=== PATIENT | female | born 1975 | race Caucasian/White ===

== ENCOUNTER 2016-11-14 12:22 | Emergency (ER) | payer OTHER ==
[~2016-11-14] VITALS: Ht 149.9 cm; Wt 93.0 kg
[~2016-11-14 12:22] MED LIST: BUPR150XL PO; CLON.5 PO; CYMB60CA PO; PROM25TA5 PO; SERO25TA PO; TOPA100T11 PO
[2016-11-14 12:25] VITALS: BP 136/84; PULSE 99; RESP 15; TEMP 98.4; O2SAT 99
[2016-11-14] MEDS ORDERED: SUMA6P SQ (12:51)
[2016-11-14] MEDS ORDERED: VICT18IN SQ (12:52)
--- NOTE | 2016-11-14 13:29 | RADRPT ---
EXAM DATE/TIME: 11/14/2016 12:58 [facility] COMPARISON: No previous studies available for comparison. INDICATIONS : Left ankle pain after fall. MEDICAL HISTORY : None. SURGICAL HISTORY : None. ENCOUNTER: Initial ACUITY: 2 days PAIN SCORE: 5/10 LOCATION: Left Ankle FINDINGS: Three view exam was performed of the left ankle. The bony structures are in normal alignment. No ev idence of fracture, dislocation, or soft tissue swelling. The ankle mortise is intact. No radiopaqu e foreign bodies are seen. Bony mineralization is normal. CONCLUSION: Unremarkable examination of the left ankle. Judd Thompson MD on November 14, 2016 at 13:28 Board Certified Radiologist. This report was verified electronically.
--- NOTE | 2016-11-14 13:30 | RADRPT ---
EXAM DATE/TIME: 11/14/2016 13:11 [facility] COMPARISON: No previous studies available for comparison. INDICATIONS : Left wrist pain after fall. MEDICAL HISTORY : None. SURGICAL HISTORY : None. ENCOUNTER: Initial ACUITY: 2 days PAIN SCORE: 8/10 LOCATION: Left lateral Wrist FINDINGS: Three view examination of the left wrist demonstrates no soft tissue swelling, dislocation, or fractu re. The carpal bones are in normal alignment. The joint spaces are maintained. Bony mineralization is normal. CONCLUSION: Negative trauma study. Judd Thompson MD on November 14, 2016 at 13:28 Board Certified Radiologist. This report was verified electronically.
--- NOTE | 2016-11-14 13:31 | RADRPT ---
EXAM DATE/TIME: 11/14/2016 13:14 [facility] COMPARISON: No previous studies available for comparison. INDICATIONS : Left hand pain after fall. MEDICAL HISTORY : None. SURGICAL HISTORY : None. ENCOUNTER: Initial ACUITY: 2 days PAIN SCORE: 9/10 LOCATION: Left lateral Hand FINDINGS: Three view examination of the left hand demonstrates no soft tissue swelling, dislocation, or fractur e. The carpal bones appear intact. The interphalangeal and metacarpophalangeal joints are intact. Bony mineralization is normal. CONCLUSION: Negative trauma study. Judd Thompson MD on November 14, 2016 at 13:29 Board Certified Radiologist. This report was verified electronically.
--- NOTE | 2016-11-14 13:40 | PD ---
HPI Chief Complaint: Fall Time Seen by Provider: 12:45 Travel History International Travel<30 days: No Contact w/Intl Traveler<30days: No Traveled to known affect area: No History of Present Illness HPI 41-year-old female presents to the emergency department for evaluation of left wrist, hand, and ankle pain status post fall 2 days ago. Patient reports she fell from a standing position onto an outstretched hand and twisted her left ankle. She reports the pain has been constant since the fall. She denies head injury or loss of consciousness. She reports that the pain is worse with range of motion and weightbearing. Slightly relieved with rest. Pain severity 5/10. She denies numbness/tingling/weakness in extremities. PFSH Past Medical History Depression: Yes Cardiovascular Problems: Yes (htn on meds prn) Diabetes: Yes Patient Takes Glucophage: No Diminished Hearing: No Migraines: Yes Ulcer: Yes Influenza Vaccination: No ?: Not Past Surgical History Appendectomy: Yes Section: Yes Cholecystectomy: Yes Hysterectomy: Yes Social History Alcohol Use: No Tobacco Use: No Substance Use: No Allergies-Medications (Allergen,Severity, Reaction): Coded Allergies: ondansetron (Unverified Allergy, Severe, Facial swelling, 11/14/16) aspirin (Unverified Adverse Reaction, Intermediate, GI upset, 11/14/16) Reported Meds & Prescriptions Reported Meds & Active Scripts Active Reported Victoza Inj (Liraglutide Inj) 18 Mg/3 Ml Pen 1.8 Mg SQ DAILY Imitrex Inj (Sumatriptan Succinate) 6 Mg/0.5 Ml Inj 6 Mg SQ ONCE PRN May repeat dose in 1 hour if needed. Topamax (Topiramate) 100 Mg Tab 100 Mg PO BID Cymbalta DR (Duloxetine HCl) 60 Mg Capdr 90 Mg PO DAILY Review of Systems Except as stated in HPI: all other systems reviewed are Neg General / Constitutional: No: Fever Eyes: No: Visual changes HENT: No: Headaches Cardiovascular: No: Chest Pain or Discomfort Respiratory: No: Shortness of Breath Gastrointestinal: No: Abdominal Pain Genitourinary: No: Dysuria Musculoskeletal: No: Pain Physical Exam Narrative GENERAL: Well-nourished, well-developed patient. In no acute distress. SKIN: Focused skin assessment warm/dry. HEAD: Normocephalic. EYES: No scleral icterus. No injection or drainage. NECK: Supple, trachea midline. No JVD or lymphadenopathy. CARDIOVASCULAR: Regular rate and rhythm without murmurs, gallops, or rubs. RESPIRATORY: Breath sounds equal bilaterally. No accessory muscle use. GASTROINTESTINAL: Abdomen soft, non-tender, nondistended. MUSCULOSKELETAL: No cyanosis. Left upper extremity: TTP to the lateral and medial aspect of the wrist. TTP and swelling over the fourth and fifth metacarpal. No deformity noted. The joint is stable. Patient has pain with flexion and extension of the wrist. 2+ distal pulses. Normal sensation. Brisk cap refill. Left lower extremity: TTP to the lateral malleolus. No deformity noted. The joint is stable. 2+ distal pulses. Normal sensation. Brisk cap refill. BACK: Nontender without obvious deformity. No CVA tenderness. Data Data Last Documented VS Vital Signs Date Time Temp Pulse Resp B/P Pulse Ox O2 Delivery O2 Flow Rate FiO2 11/14/16 12:25 98.4 99 15 136/84 99 Orders Ankle, Complete ([id number]) (11/14/16 ) Wrist, Complete ([id number]) (11/14/16 ) Hand, Complete ([id number]) (11/14/16 ) Shay Bandage (11/14/16 13:55) Splint Or Brace Apply/Monitor (11/14/16 13:55) MDM Medical Decision Making Medical Screen Exam Complete: Yes Emergency Medical Condition: Yes Differential Diagnosis Wrist fracture versus wrist sprain versus metacarpal fracture versus ankle fracture versus ankle sprain Narrative Course 41-year-old female with chief complaint of left wrist, left hand, left ankle pain status post fall 2 days ago. Patient fell from standing position. She denies head injury or loss of consciousness. Her physical exam is reassuring. She has mild amount of swelling and notable tenderness to the left wrist, left hand and left ankle. The joints are without deformity. The extremity is neurovascular intact. X-rays pending X-ray of the left wrist and hand negative for fracture X-ray of the left ankle negative for fracture Shay wrap applied to left ankle for support. Left wrist placed in a wrist splint. Patient will be treated for left ankle and left wrist sprain. She is given a shot of Toradol in the ED. Instructed to take [id number] NSAIDs as needed for pain. Follow-up with her primary doctor. Patient verbalizes understanding and agrees to plan Diagnosis Primary Impression: Left wrist sprain Qualified Code: S63.502A - Sprain of left wrist, initial encounter Additional Impression: Ankle sprain Qualified Code: S93.402A - Sprain of left ankle, unspecified ligament, initial encounter Referrals: Primary Care Physician Additional Instructions: Take [id number] Motrin [id number] milligrams by mouth every 6-8 hours as needed for pain. We're the Shay wrap and wrist splint as needed for comfort. Ice and elevate the extremities. Follow up with her primary care doctor for recheck. Return to emergency department if he developed new or worsening symptoms. Disposition: 01 DISCHARGE HOME Condition: Stable Natalia Andrews Nov 14, 2016 13:40
[2016-11-14] MEDS ORDERED: KETOROLAC TROMETHAMINE 60 MG/2 ML (IM) VIAL IM ONE (14:00)
[2016-11-14 14:17] VITALS: BP 127/74
== END 2016-11-14 14:23 | disposition home or self-care (01) ==
LOC: PHEFT 12:22
DX: S63.502A Unspecified sprain of left wrist, initial encounter (principal); S93.402A Sprain of unspecified ligament of left ankle, initial encounter; M79.642 Pain in left hand; E11.9 Type 2 diabetes mellitus without complications; I10 Essential (primary) hypertension; Z86.59 Personal history of other mental and behavioral disorders; Z86.69 Personal history of other diseases of the nervous system and sense organs; W18.39XA Other fall on same level, initial encounter
CPT/HCPCS: 73110; 73130; 73610; 96372; 99284; J1885; L3908